=== PATIENT | male | born 1980 | race Caucasian/White ===

== ENCOUNTER 2020-08-14 18:10 | Emergency (ER) | payer OTHER ==
[~2020-08-14 18:10] MED LIST: AUGMENTIN875 MG PO; OMEPRAZOLE40 MG PO; PROBIOTIC1 EAC1 PO; STOOL SOFTENER
[2020-08-14 20:10] LABS: BASOPHIL 0.8 % (0-2); EOSINOPHIL 2.3 % (0-5); HCT 41.1 % (42.0-52.0); HGB 14.5 g/dl (13.2-18.0); LYMPHOCYTE 29.8 % (15-48); MCHC 35.3 g/dL (32.0-36.0); MCV 93.4 fL (78.0-100.0); MONOCYTE 10.4 % (0-12); NEUTROPHIL 56.3 % (41-80); NRBC 0; PLT 262 K/uL (150-400); RDW 12.5 % (11.5-14.0); WBC 7.7 K/uL (4.0-10.5)
[2020-08-14 20:13] LABS: ECSTASY (MDMA) NEGATIVE (NEGATIVE); MARIJUANA (THC) NEGATIVE (NEGATIVE); METHADONE NEGATIVE (NEGATIVE); OPIATES NEGATIVE (NEGATIVE)
[2020-08-14 20:14] LABS: AMPHETAMINES NEGATIVE (NEGATIVE); BARBITURATES NEGATIVE (NEGATIVE); OXYCODONE NEGATIVE (NEGATIVE)
[2020-08-14 20:33] LABS: CREATININE 0.92 mg/dL (0.67-1.17); POTASSIUM 3.9 mmol/L (3.5-5.1)
[2020-08-14 20:34] LABS: ALBUMIN 3.8 g/dL (3.4-5.0); BILIRUBIN - TOTAL 0.3 mg/dL (0.2-1.0); GLOBULIN (CALCULATION) 3.3 g/dL; TOTAL PROTEIN 7.1 g/dL (6.4-8.2)
[2020-08-14 21:08] LABS: PRO-BNP 10 pg/mL (<125)
== END 2020-08-14 20:55 | disposition home or self-care (01) ==
LOC: FER 18:10
PROVIDERS: Emergency Medicine
DX: R00.2 Palpitations (principal)
CPT/HCPCS: 36415; 71045; 80053; 80305; 83880; 84484; 85025; 93005; J7030